=== PATIENT | female | born 1975 | race American Indian/Alaskan Native ===

== ENCOUNTER 2022-03-18 09:11 | Emergency (ER) | payer MEDICARE ==
--- NOTE | 2022-03-18 10:07 | XRay Report ---
LEFT KNEE 3 VIEW(S) INDICATION / CLINICAL INFORMATION: PAIN COMPARISON: None available. FINDINGS: BONES / JOINT(S): No acute fracture or subluxation. Moderate tricompartmental degenerative changes, m ost pronounced in the medial femorotibial compartment. SOFT TISSUES: Small joint effusion. ADDITIONAL FINDINGS: None. IMPRESSION: 1. No acute findings. Moderate tricompartmental degenerative changes. Signer Name: Figueroa Horne MD Signed: 03/18/2022 10:03 AM Workstation Name: [email or web address]
[2022-03-18] MEDS ORDERED: HYDROcodone/ACETAMINOPHEN 10-325MG TAB PO ONE (12:09)
--- NOTE | 2022-03-18 12:19 | Emergency Department Report ---
ED Lower Extremity HPI - General Chief Complaint: Extremity Injury, Lower Stated Complaint: LT KNEE PAIN Time Seen by Provider: 03/18/22 11:58 Source: EMS Mode of arrival: Stretcher Limitations: Physical Limitation - History of Present Illness Initial Comments: This is a 46-year-old female nontoxic, well nourished in appearance, no acute signs of distress presents to the ED with c/o of left knee pain 1 day. Patient stated that last night she was walking and develop some pains and this morning around 1:30 AM symptoms has worsen. Patient denies any injuries or trauma. Patient denies any numbness, tingling, fever, chills, nausea, vomiting, chest pain, shortness of breath, headache, stiff neck. Patient denies any joint swelling or joint redness. Patient denies decreased range of motion but stated has decreased gait due to pain. Patient denies any allergies. MD Complaint: knee injury -: Last night Injury: Knee: Left Place: home Severity scale (0 -10): 8 Improves With: immobilization Worsens With: weight bearing, movement, palpation Associated Symptoms: swelling, able to partially bear weight. denies: snap/pop sensation, numbness, tingling, unable to bear weight - Related Data Home Medications Medication Instructions Recorded Confirmed Last Taken Aspirin [Aspirin BABY CHEW TAB] 81 mg PO QDAY 05/10/15 05/10/15 05/10/15 Bumetanide [Bumex] 1 mg PO TID 05/10/15 05/10/15 05/10/15 Spironolactone [Aldactone] 25 mg PO BID 05/10/15 05/10/15 05/10/15 carvediloL [Coreg] 6.25 mg PO BID 05/10/15 05/10/15 05/10/15 lisinopriL [Zestril TAB] 40 mg PO QDAY 05/10/15 05/10/15 05/10/15 Previous Rx's Medication Instructions Recorded Last Taken Type Albuterol Mdi (or & Nicu Only) 2 puff IH QID PRN #1 inha 05/10/15 Unknown Rx [ProAir HFA Inhaler] Azithromycin [Zithromax TAB] 500 mg PO QDAY #3 tablet 05/10/15 Unknown Rx Prednisone [predniSONE 5 mg (6-Day 5 mg PO .TAPER #1 tab.ds.pk 05/10/15 Unknown Rx Pack, 21 Tabs)] Naproxen 500 mg PO Q12H PRN #14 tab 03/18/22 Unknown Rx Allergies Allergy/AdvReac Type Severity Reaction Status Date / Time No Known Allergies Allergy Verified 06/05/13 22:02 ED Review of Systems ROS: Stated complaint: LT KNEE PAIN Other details as noted in HPI Comment: All other systems reviewed and negative Constitutional: denies: chills, fever Eyes: denies: eye pain, eye discharge, vision change ENT: denies: ear pain, throat pain Respiratory: denies: cough, shortness of breath, wheezing Cardiovascular: denies: chest pain, palpitations Endocrine: no symptoms reported Gastrointestinal: denies: abdominal pain, nausea, diarrhea Genitourinary: denies: urgency, dysuria, discharge Musculoskeletal: denies: back pain, joint swelling, arthralgia Skin: denies: rash, lesions Neurological: denies: headache, weakness, paresthesias Psychiatric: denies: anxiety, depression Hematological/Lymphatic: denies: easy bleeding, easy bruising ED Past Medical Hx - Past Medical History Hx Hypertension: Yes Hx Congestive Heart Failure: Yes Hx Asthma: Yes (reactive airway disease) - Surgical History Additional Surgical History: - Social History Smoking Status: Never Smoker Substance Use Type: None - Medications Home Medications: Home Medications Medication Instructions Recorded Confirmed Last Taken Type Albuterol Mdi (or & Nicu Only) 2 puff IH QID PRN #1 inha 05/10/15 Unknown Rx [ProAir HFA Inhaler] Aspirin [Aspirin BABY CHEW TAB] 81 mg PO QDAY 05/10/15 05/10/15 05/10/15 History Azithromycin [Zithromax TAB] 500 mg PO QDAY #3 tablet 05/10/15 Unknown Rx Bumetanide [Bumex] 1 mg PO TID 05/10/15 05/10/15 05/10/15 History Prednisone [predniSONE 5 mg (6-Day 5 mg PO .TAPER #1 tab.ds.pk 05/10/15 Unknown Rx Pack, 21 Tabs)] Spironolactone [Aldactone] 25 mg PO BID 05/10/15 05/10/15 05/10/15 History carvediloL [Coreg] 6.25 mg PO BID 11/01/1505/10/15 05/10/15 History lisinopriL [Zestril TAB] 40 mg PO QDAY 05/10/15 05/10/15 05/10/15 History Naproxen 500 mg PO Q12H PRN #14 tab 03/18/22 Unknown Rx ED Physical Exam - General Limitations: Physical Limitation General appearance: alert, in no apparent distress - Head Head exam: Present: atraumatic, normocephalic - Eye Eye exam: Present: normal appearance - Neck Neck exam: Present: normal inspection, full ROM. Absent: lymphadenopathy - Respiratory Respiratory exam: Absent: respiratory distress - Cardiovascular Cardiovascular Exam: Present: regular rate - Extremities Exam Extremities exam: Present: full ROM (with pain), tenderness. Absent: normal capillary refill, pedal edema, joint swelling, calf tenderness - Expanded Lower Extremity Exam Left Hip exam: Present: normal inspection, full ROM. Absent: tenderness, swelling Upper Leg exam: Present: normal inspection, full ROM. Absent: tenderness, swelling, abrasion, laceration, ecchymosis, deformity, crepidus, dislocation, erythema Knee exam: Present: normal inspection, full ROM (with pain), tenderness, full knee extension. Absent: swelling, abrasion, laceration, ecchymosis, deformity, crepidus, dislocation, erythema, effusion, pain w/ pronation/supination, posterior draw sign, pain/laxity with valgus, pain/laxity with varus Lower Leg exam: Present: normal inspection, full ROM. Absent: tenderness, swelling, abrasion, laceration, ecchymosis, deformity, crepidus, dislocation, erythema, palpable cord, Mateo's sign Ankle exam: Present: normal inspection, full ROM. Absent: tenderness, swelling Foot/Toe exam: Present: normal inspection, full ROM. Absent: tenderness, swelling Neuro vascular tendon exam: Present: no vascular compromise Gait: Positive: observed and limited by pain - Back Exam Back exam: Present: normal inspection, full ROM - Neurological Exam Neurological exam: Present: alert, oriented X3 - Psychiatric Psychiatric exam: Present: normal affect, normal mood - Skin Skin exam: Present: warm, dry, intact, normal color. Absent: rash ED Course Vital Signs 03/18/22 03/18/22 09:13 09:22 Temperature 97.6 F Pulse Rate 102 H Respiratory 20 Rate Blood Pressure 146/85 [Left] O2 Sat by Pulse 97 94 Oximetry - Reevaluation(s) Reevaluation #1: 03/18/22 12:18 Patient is speaking in full sentences with no signs of distress noted. ED Lower Extremity MDM - Radiology Data [facility] [address] [place] [address] XRay Report Signed Patient: IKM MARTINS MR#: [id number] : 1975 Acct:[id number] Age/Sex: 46 / F ADM Date: 03/18/22 Loc: ED Attending Dr: Ordering Physician: KELLEY BRIZUELA MD Date of Service: 03/18/22 Procedure(s): XR knee 3V LT Accession Number(s): [id number] cc: ED MD GELACIO Fluoro Time In Minutes: LEFT KNEE 3 VIEW(S) INDICATION / CLINICAL INFORMATION: PAIN COMPARISON: None available. FINDINGS: BONES / JOINT(S): No acute fracture or subluxation. Moderate tricompartmental degenerative changes, most pronounced in the medial femorotibial compartment. SOFT TISSUES: Small joint effusion. ADDITIONAL FINDINGS: None. IMPRESSION: 1. No acute findings. Moderate tricompartmental degenerative changes. Signer Name: Thu Singleton MD Signed: 03/18/2022 10:03 AM Workstation Name: [id number] Transcribed By: OSWALD Dictated By: THU SINGLETON MD Electronically Authenticated By: THU SINGLETON MD Signed Date/Time: 03/18/22 1003 DD/ 1002 TD/TT: - Medical Decision Making This is a 46-year-old female that presents with left knee injury. Patient is stable and was examined by me. I referred patient to an orthopedic doctor for further evaluation for possible MRI. X-ray has been obtained and dictated by the radiologist. Patient is notified of the x-ray report with noted by the patient. Patient does have has some tenderness but no joint swelling. No ecchymosis. no joint redness or swelling. Not warm to touch. No signs of cellulites present. Patient received a knee immobilizer and stated has crutches at home. Patient was instructed to RICE therapy. Patient received Troy for pain which stated symptoms improved and family will drive patient home after discharge due to possible drowsiness of Troy. Patient is discharged with Naproxen. At time of discharge, the patient does not seem toxic or ill in appearance. No acute signs of distress noted. Patient agrees to discharge treatment plan of care. No further questions noted by the patient. Critical care attestation.: If time is entered above; I have spent that time in minutes in the direct care of this critically ill patient, excluding procedure time. ED Disposition Clinical Impression: Left knee injury Qualifiers: Encounter type: initial encounter Qualified Code(s): S89.92XA - Unspecified injury of left lower leg, initial encounter Tricompartment degenerative joint disease of knee Qualifiers: Laterality: left Qualified Code(s): M17.12 - Unilateral primary osteoarthritis, left knee Disposition: HOME / SELF CARE / HOMELESS Is pt being admited?: No Does the pt Need Aspirin: No Condition: Stable Instructions: RICE Therapy for Routine Care of Injuries, [id number] Additional Instructions: Follow-up with a orthopedic doctor in 3-5 days or if symptoms worsen and continue return to emergency room as soon as possible. No physical activity that extremity until cleared by orthopedic doctor Prescriptions: Naproxen 500 mg PO Q12H PRN #14 tab PRN Reason: Pain , Severe (7-10) Referrals: PRIMARY CAREMD [Referring] - 3-5 Days NOLBERTO GIBSON MD [Staff Physician] - 3-5 Days Forms: Work/School Release Form(ED) Time of Disposition: 12:21
[2022-03-18 16:16] VITALS: BP 138/88
== END 2022-03-18 16:16 | disposition home or self-care (01) ==
LOC: ED 09:11
DX: S89.92XA Unspecified injury of left lower leg, initial encounter (principal); I10 Essential (primary) hypertension; I50.9 Heart failure, unspecified; J45.909 Unspecified asthma, uncomplicated; X58.XXXA Exposure to other specified factors, initial encounter; Y93.89 Activity, other specified; Y92.89 Other specified places as the place of occurrence of the external cause; Y99.8 Other external cause status
CPT/HCPCS: 99284